=== PATIENT | female | born 1955 | race Caucasian/White ===

== ENCOUNTER 2018-06-01 13:14 | Observation (INO) ==
[2018-06-01] MEDS ORDERED: MoRPHine SULFATE 4 MG/ML 1 ML CARP\\VIAL IV STA (13:49)
[2018-06-01 14:19] LABS: iSTAT Creatinine 0.7 mg/dl (0.6-1.3); iSTAT Hemoglobin 12.9 g/dl (12.0-16.0); iSTAT Ionized Calcium 1.27 mmol/l (1.12-1.32); iSTAT Potassium 3.3 mEq/L (3.3-5.0)
--- NOTE | 2018-06-01 14:56 | XRay Report ---
XR hip LT 2-3V w pelvis CLINICAL HISTORY: trauma pain COMPARISON: None. DISCUSSION: The bones and joint spaces appear intact. There is no evidence of fracture, dislocation o r bony disease. There is no evidence for soft tissue swelling. IMPRESSION: Negative study. The above report was generated using voice recognition software. It may contain grammatical, syntax or spelling errors. Electronically signed by: John Magana M.D. 06/01/2018 2:54 PM
--- NOTE | 2018-06-01 14:56 | XRay Report ---
AP CHEST WITH LEFT-SIDED RIB SERIES CLINICAL HISTORY: Fall. FINDINGS: An AP upright chest radiograph with 4 additional views from a left-sided rib series is obta ined. No prior studies are available for comparison at the time of dictation. The cardiomediastinal silhouette is unremarkable. There is bibasilar scarring/atelectasis. No airspace consolidation or lar ge pleural effusion is identified. No pneumothorax is seen. The skeletal structures are osteopenic. T here is no radiographic evidence of acute/distracted left-sided rib fracture on the rib series. The r emainder of the bony thorax is grossly intact. Fusion hardware is seen in the lower cervical spine. S urgical clips are noted in the upper abdomen. IMPRESSION: 1. The lungs are clear. 2. There is no radiographic evidence of acute/distracted left-sided rib fracture on the rib series. Electronically signed by: Kali Juarez M.D. 06/01/2018 2:55 PM
--- NOTE | 2018-06-01 14:57 | XRay Report ---
XR shoulder LT min 2V routine, XR elbow LT min 3V routine, XR forearm LT 2V HISTORY: 62 years-old Female trauma acute left upper extremity pain status post trauma COMPARISON: None available TECHNIQUE: 3 views of the left shoulder, 3 views of the left elbow and 2 views of the left forearm FINDINGS: SHOULDER: Demineralized appearance of the bones. Moderate AC joint with mild glenohumeral osteoarthritis. No ac wes fracture or dislocation. Imaged left lung lacey appear clear. Fusion hardware noted about the lower cervical spine. ELBOW: Demineralized appearance of the bones. Mild degenerative changes about the elbow. No acute fracture, dislocation, opaque foreign body or large joint effusion. FOREARM: No acute fracture, dislocation or opaque foreign body. 2 mm negative ulnar variance. Degenerative erna nges noted about the carpus. Demineralized appearance of the bones. Mild mid forearm soft tissue swel ling. IMPRESSION: No acute fracture or dislocation. The above report was generated using voice recognition software. It may contain grammatical, syntax o r spelling errors. Electronically signed by: Gian Hua M.D. 06/01/2018 2:55 PM
[2018-06-01] MEDS ORDERED: FAMOTIDINE 20MG/5ML IV PUSH IV STA (15:06)
[2018-06-01] MEDS ORDERED: SODIUM CHLORIDE 0.9% 500 ML IV ONE (15:11)
[2018-06-01] MEDS ORDERED: ONDANSETRON INJ 2 MG/ML 2 ML VIAL IV STA (15:11)
[2018-06-01] MEDS ORDERED: IOVERSOL 100ml IV PRN (16:02)
--- NOTE | 2018-06-01 16:12 | CT Scan Report ---
CT hip LT wo con HISTORY: 62 years-old Female trauma, pain acute post traumatic left hip pain COMPARISON: CT abdomen and pelvis of same day TECHNIQUE: Multiple axial CT images of the left hip were obtained without the use of IV contrast. A d ose lowering technique was used consistent with the principals of GUILLERMO. FINDINGS: There are several subcentimeter sclerotic foci about the proximal femur suggestive of benign bone isl ands. There are subtle acute nondisplaced fractures about the left superior and inferior pubic rami. Partially imaged subtle acute nondisplaced fracture of the left sacral ala. Left femur and femoral ac etabular joint are intact. Mild left hip osteoarthritis. No acute processes of the imaged intrapelvic structures. Mild urinary bladder distention. Soft tissue s of the left hip are unremarkable. No large joint effusion. IMPRESSION: 1. Acute nondisplaced left superior and inferior pubic rami fractures with partially imaged fracture of the left sacral ala. 2. 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 The above report was generated using voice recognition software. It may contain grammatical, syntax o r spelling errors. Electronically signed by: Gian Hua M.D. 06/01/2018 4:11 PM
--- NOTE | 2018-06-01 16:17 | CT Scan Report ---
ABDOMEN AND PELVIS CT WITH IV CONTRAST CT DOSE: 797.78 mGy.cm HISTORY: Abdominal pain. Nausea. Vomiting. TECHNIQUE: Multiaxial CT images of the abdomen and pelvis were performed following the use of intrave nous contrast. A dose lowering technique was utilized adhering to the principles of ALARA. COMPARISON STUDY: None. FINDINGS: Groundglass densities within the lung bases posteriorly likely represent dependent changes. There are suggestion of a subtle left superior and inferior pubic rami fractures. Subtle cortical ir regularity along the anterior cortex of the left sacrum best in image 327. This is consistent with a nondisplaced sacral fracture. Mild intrahepatic bile duct dilatation is noted. 1 cm hypodense lesion within the caudate lobe adjacent to the IVC. This is too small to characterize. The spleen, adrenal g lands, and pancreas appear unremarkable. The common bile duct is diffusely distended measuring up to 1 cm in diameter. This may be due to the patient's postcholecystectomy state. No retroperitoneal lymp hadenopathy. A few subcentimeter hypodense lesions within the left kidney which are too small to hola acterize. Statistically these represent cysts. Normal right kidney. No hydronephrosis. The bladder is unremarkable. The uterus is surgically absent. The appendix is not identified and reportedly surgica lly absent. No pelvic free fluid. No bowel wall thickening or obstruction. Colonic diverticulosis. No evidence for diverticulitis. IMPRESSION: 1. Nondisplaced left sacral and left pubic ring fractures. 2. Intra and extra hepatic bile duct dilatation. This may be due to the patient's postcholecystectomy state. Recommend correlation with LFTs. 3. No bowel wall thickening or obstruction. 4. Colonic diverticulosis. 5. Prior hysterectomy and appendectomy. Electronically signed by: Jayce Kearney M.D. 06/01/2018 4:16 PM
[2018-06-01] MEDS ORDERED: GI COCKTAIL ED USE PO ONE (16:55)
--- NOTE | 2018-06-01 16:56 | Emergency Department Note ---
Entered by Edelmira Mae acting as a scribe for History of Present Illness General Chief complaint: Fall Stated complaint: fall/ L hip & shoulder pain Time Seen by Provider: 06/01/18 13:22 Source: patient History of Present Illness Onset (ago): minute(s) (prior to arrival) Location: left (hip, elbow, shoulder) Pain Consistency: + other (episode) Maximum Pain Intensity: 8 Quality: + other (fall) Exacerbated By: + movement Associated symptoms: + denies other symptoms (loss of consciousness, left knee pain, rib pain, new neck pain, dizziness, lightheadedness, right arm pain, right leg pain) and + other (left hip pain, left elbow pain, left shoulder pain); no chest pain and no shortness of breath The patient is a 62 year old female who presents to the Emergency Room with complaints of an episode of a fall occurring prior to arrival. The patient states that she was walking into [place] when she slipped on a big patch of ice and landed on her left side. She states that she was unable to get up afterwards. She complains of left hip pain, left shoulder pain, and left elbow pain. She notes that it is worse with movement. The patient denies hitting her head, loss of consciousness, left knee pain, rib pain, chest pain, new neck pain, trouble breathing, dizziness, lightheadedness, right arm pain, right leg pain, and use of blood thinners. The patient notes that she is right handed. Home Medications Home Medications Medication Instructions Recorded Confirmed Type esomeprazole magnesium 40 mg PO QAM 06/01/18 06/01/18 History gabapentin 400 mg PO QAM 06/01/18 06/01/18 History tramadol 50 mg PO Q12H PRN 06/01/18 06/01/18 History Allergies Allergy/AdvReac Type Severity Reaction Status Date / Time No Known Allergies Allergy Unverified 06/01/18 14:47 Past Med/Surg History Medical History History of hysterectomy GERD (gastroesophageal reflux disease) Chronic neck pain RLS (restless legs syndrome) Surgical History History of tubal ligation History of hemorrhoidectomy History of appendectomy History of cholecystectomy History of fusion of cervical spine History of neck surgery Social History Preferred Language: Nigerian Communication Ability: Effective marital status: Current Living Situation: Family current occupational status: employed current occupation: [employer] Feels Safe at Home: Yes Smoking Status: Never smoker Hx Alcohol Use: Yes Hx Substance Use: No Review of Systems See HPI for pertinent positives & negatives. and A total of 10 systems reviewed and were otherwise negative Physical Exam Vital Signs Vital Signs - 24 hr 06/01/18 13:31 06/01/18 14:04 06/01/18 15:43 Temperature 36.4 C L Temperature Source Oral Sepsis Recent Fever Within 48 Hours No Sepsis New/Unexplained Change in Mental Status No Sepsis Action Taken by Nursing No Action Required Pulse Rate 77 Pulse Rate [Left Finger] 79 79 Respiratory Rate 18 18 18 Respiratory Effort / Characteristics Non-Labored Spontaneous Respiratory Depth Normal Normal Respiratory Pattern Regular Blood Pressure 143/83 H Blood Pressure [Left Arm] 144/84 H 154/80 H Blood Pressure [Right Arm] Blood Pressure Mean 103 Blood Pressure Mean [Left Arm] 104 104 Blood Pressure Mean [Right Arm] Blood Pressure Position [Left Arm] Lying Blood Pressure Position [Right Arm] Pulse Oximetry 100 97 93 Oxygen Delivery Method Room Air Room Air Room Air 06/01/18 17:45 06/01/18 18:37 06/01/18 19:33 Temperature 36.8 C Temperature Source Oral Sepsis Recent Fever Within 48 Hours Sepsis New/Unexplained Change in Mental Status Sepsis Action Taken by Nursing Pulse Rate 88 Pulse Rate [Left Finger] 85 91 H Respiratory Rate 18 18 16 Respiratory Effort / Characteristics Non-Labored Spontaneous Non-Labored Spontaneous Respiratory Depth Normal Normal Respiratory Pattern Regular Blood Pressure 130/79 Blood Pressure [Left Arm] 141/80 H Blood Pressure [Right Arm] 126/73 Blood Pressure Mean Blood Pressure Mean [Left Arm] 100 Blood Pressure Mean [Right Arm] 90 Blood Pressure Position [Left Arm] Blood Pressure Position [Right Arm] Lying Pulse Oximetry 93 93 96 Oxygen Delivery Method Room Air Room Air Room Air GENERAL: alert, well appearing, well nourished, no distress, non-toxic HEAD: normal cephalic, atraumatic EYE EXAM: normal conjunctiva, PERRL and EOM's grossly intact OROPHARYNX: no exudate, no erythema, lips, buccal mucosa, and tongue normal and mucous membranes are moist EARS: TMs clear b/l NECK: supple, no nuchal rigidity, no adenopathy, non-tender CHEST: stable to compression anteriorly and posteriorly LUNGS: clear to auscultation. Normal chest wall mechanics HEART: no murmurs, S1 normal and S2 normal ABDOMEN: abdomen soft, non-tender, normo-active bowel sounds, no masses, no rebound or guarding. PELVIS: stable to compression anteriorly and posteriorly BACK: Back is symmetrical on inspection and there is no deformity, no midline tenderness, no CVA tenderness. UPPER EXTREMITIES: Pain with palpation over the left humeral head and distal clavicle. No ecchymosis. No obvious deformity. Decreased ROM secondary to pain. Pain with palpation of the left lateral epicondyle. No overlying ecchymosis. No obvious deformity. Decreased ROM secondary to pain. Pain with palpation over the left forearm and wrist. No overlying ecchymosis. No obvious deformity. Decreased ROM secondary to pain. Normal distal pulses bilaterally. Normal capillary refill. Normal sensory exam. RUE unremarkable. LOWER EXTREMITIES: Pain with palpation over the left lateral hip. Decreased ROM due to pain. No obvious deformity or ecchymosis. Normal distal pulses bilaterally. Patient prefers to keep the left lower extremity in a flexed position. NEURO EXAM: Normal sensorium, cranial nerves II-XII grossly intact, normal speech, no gross weakness of arms, no gross weakness of legs. GCS: 15. Course 1329: Past medical records reviewed. The patient was evaluated in room C2B, and a complete history and physical examination were performed. 1509: I reevaluated the patient and she is now having epigastric pain and nausea. She is still unable to move left hip. She will be sent for a CT. 1630: I reevaluated the patient and updated her on her test results. She is tearful, but doing okay. I discussed the treatment plan with her. She verbally agrees and understands. 1653: I reviewed the patient's case with BOY Kaur spitalist. She will evaluate the patient for further management. Consultations Consultation #1: I reviewed the patient's case with BOY Kaur Hospitalist. She will evaluate the patient for further management. Time: 16:53 Administered Medications Discontinued Medications Al Hydrox/Mg Hydrox/Simethicone () 1 dose PO ONE ONE Stop: 06/01/18 16:56 Last Admin: 06/01/18 19:01 Dose: Not Given Documented by: [id number] Famotidine (Pepcid 20mg Iv Push) 20 mg IV ONE STA Stop: 06/01/18 15:07 Last Admin: 06/01/18 15:42 Dose: 20 mg Documented by: [id number] Sodium Chloride (Nss) 500 mls @ 999 mls/hr IV .Q31M ONE Stop: 06/01/18 15:41 Last Infusion: 06/01/18 16:12 Dose: 0 mls/hr Documented by: [id number] Admin: 06/01/18 15:42 Dose: 999 mls/hr Documented by: [id number] Ioversol (Optiray 320 100ml) 94 ml IV ONCE PRN PRN Reason: Interaction Checking Stop: 06/05/18 16:01 Last Admin: 06/01/18 16:03 Dose: 94 ml Documented by: [id number] Morphine Sulfate (Morphine Sulfate) 4 mg IV NOW STA Stop: 06/01/18 13:50 Last Admin: 06/01/18 14:05 Dose: 4 mg Documented by: [id number] Ondansetron HCl (Zofran) 4 mg IV NOW STA Stop: 06/01/18 15:12 Last Admin: 06/01/18 15:42 Dose: 4 mg Documented by: [id number] Medical Decision Making Differential Diagnosis Differential diagnosis: Etiologies such as fracture, cervical/vertebral injury, dislocation, intra- abdominal process, pneumothorax, intrathoracic trauma, intracranial injury, soft tissue injury, neurologic process, as well as other traumatic pathologies were entertained. Medical Records Attestation: I reviewed the patient's medical records. Home Medications Current Medication List: was personally reviewed by me Laboratory Data Attestation: I reviewed the patient's lab results. Lab Results 06/01/18 06/01/18 Range/Units 14:07 14:11 POC Hgb 12.9 (12.0-16.0) g/dl POC Hct 38 (37-47) % POC Sodium 143 (135-144) mEq/L POC Potassium 3.3 (3.3-5.0) mEq/L POC Chloride 106 (101-112) mEq/L POC Total CO2 24 (24-31) mEq/l POC Anion Gap 17.0 (16-25) mmol/L POC BUN 10 (7-18) mg/dl POC Creatinine 0.7 (0.6-1.3) mg/dl POC Glucose (other) 97 (70-99) mg/dl POC Ioniz Calcium Weston 1.27 (1.12-1.32) mmol/l POC Troponin I < 0.03 (0-0.045) ng/ml Imaging Data Radiologist's Impression: Radiology results as stated below per my review and the radiologist's interpretation: XR shoulder LT min 2V routine, XR elbow LT min 3V routine, XR forearm LT 2V HISTORY: 62 years-old Female trauma acute left upper extremity pain status post trauma COMPARISON: None available TECHNIQUE: 3 views of the left shoulder, 3 views of the left elbow and 2 views of the left forearm FINDINGS: SHOULDER: Demineralized appearance of the bones. Moderate AC joint with mild glenohumeral osteoarthritis. No acute fracture or dislocation. Imaged left lung lacey appear clear. Fusion hardware noted about the lower cervical spine. ELBOW: Demineralized appearance of the bones. Mild degenerative changes about the elbow. No acute fracture, dislocation, opaque foreign body or large joint effusion. FOREARM: No acute fracture, dislocation or opaque foreign body. 2 mm negative ulnar variance. Degenerative changes noted about the carpus. Demineralized appearance of the bones. Mild mid forearm soft tissue swelling. IMPRESSION: No acute fracture or dislocation. The above report was generated using voice recognition software. It may contain grammatical, syntax or spelling errors. Electronically signed by: Gian Hua M.D. 06/01/2018 2:55 PM AP CHEST WITH LEFT-SIDED RIB SERIES CLINICAL HISTORY: Fall. FINDINGS: An AP upright chest radiograph with 4 additional views from a left- sided rib series is obtained. No prior studies are available for comparison at the time of dictation. The cardiomediastinal silhouette is unremarkable. There is bibasilar scarring/atelectasis. No airspace consolidation or large pleural effusion is identified. No pneumothorax is seen. The skeletal structures are osteopenic. There is no radiographic evidence of acute/distracted left-sided rib fracture on the rib series. The remainder of the bony thorax is grossly intact. Fusion hardware is seen in the lower cervical spine. Surgical clips are noted in the upper abdomen. IMPRESSION: 1. The lungs are clear. 2. There is no radiographic evidence of acute/distracted left-sided rib fracture on the rib series. Electronically signed by: Kali Juarez M.D. 06/01/2018 2:55 PM XR hip LT 2-3V w pelvis CLINICAL HISTORY: trauma pain COMPARISON: None. DISCUSSION: The bones and joint spaces appear intact. There is no evidence of fracture, dislocation or bony disease. There is no evidence for soft tissue swelling. IMPRESSION: Negative study. The above report was generated using voice recognition software. It may contain grammatical, syntax or spelling errors. Electronically signed by: John Magana M.D. 06/01/2018 2:54 PM ABDOMEN AND PELVIS CT WITH IV CONTRAST CT DOSE: 797.78 mGy.cm HISTORY: Abdominal pain. Nausea. Vomiting. TECHNIQUE: Multiaxial CT images of the abdomen and pelvis were performed following the use of intravenous contrast. A dose lowering technique was utilized adhering to the principles of ALARA. COMPARISON STUDY: None. FINDINGS: Groundglass densities within the lung bases posteriorly likely represent dependent changes. There are suggestion of a subtle left superior and inferior pubic rami fractures. Subtle cortical irregularity along the anterior c ortex of the left sacrum best in image 327. This is consistent with a nondisplaced sacral fracture. Mild intrahepatic bile duct dilatation is noted. 1 cm hypodense lesion within the caudate lobe adjacent to the IVC. This is too small to characterize. The spleen, adrenal glands, and pancreas appear unremarkable. The common bile duct is diffusely distended measuring up to 1 cm in diameter. This may be due to the patient's postcholecystectomy state. No retroperitoneal lymphadenopathy. A few subcentimeter hypodense lesions within the left kidney which are too small to characterize. Statistically these represent cysts. Normal right kidney. No hydronephrosis. The bladder is unremarkable. The uterus is surgically absent. The appendix is not identified and reportedly surgically absent. No pelvic free fluid. No bowel wall thickening or obstruction. Colonic diverticulosis. No evidence for diverticulitis. IMPRESSION: 1. Nondisplaced left sacral and left pubic ring fractures. 2. Intra and extra hepatic bile duct dilatation. This may be due to the patient's postcholecystectomy state. Recommend correlation with LFTs. 3. No bowel wall thickening or obstruction. 4. Colonic diverticulosis. 5. Prior hysterectomy and appendectomy. Electronically signed by: Jayce Kearney M.D. 06/01/2018 4:[address] hip LT wo con HISTORY: 62 years-old Female trauma, pain acute post traumatic left hip pain COMPARISON: CT abdomen and pelvis of same day TECHNIQUE: Multiple axial CT images of the left hip were obtained without the use of IV contrast. A dose lowering technique was used consistent with the principals of GUILLERMO. FINDINGS: There are several subcentimeter sclerotic foci about the proximal femur suggestive of benign bone islands. There are subtle acute nondisplaced fractures about the left superior and inferior pubic rami. Partially imaged subtle acute nondisplaced fracture of the left sacral ala. Left femur and femoral acetabular joint are intact. Mild left hip osteoarthritis. No acute processes of the imaged intrapelvic structures. Mild urinary bladder distention. Soft tissues of the left hip are unremarkable. No large joint effusion. IMPRESSION: 1. Acute nondisplaced left superior and inferior pubic rami fractures with partially imaged fracture of the left sacral ala. 2. 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 The above report was generated using voice recognition software. It may contain grammatical, syntax or spelling errors. Electronically signed by: Gian Hua M.D. 06/01/2018 4:11 PM ECG Data Attestation: I personally reviewed and interpreted this ECG as follows: Indication: other (trauma) Rate (beats per minute): 77 Rhythm: sinus rhythm Findings: + other (normal axis, normal intervals, artifact noted); no ST elevation Blood Pressure Blood Pressure Findings: Elevated blood pressure Blood Pressure Disposition: further management by hospitalist ROGER Tobin Patient presented here after slip and fall from standing due to icy weather conditions. Patient not on any antiplatelet or anticoagulation therapy. Patient hemodynamically stable throughout, Chem-8 and [id number] troponin reassuring. While x-rays originally negative, patient with persistent pain and sent for CT imaging as a precaution. Patient also had developed some epigastric discomfort and nausea in the interim, so given the trauma she was sent for a CT abdomen and pelvis as well as a CT of the left hip given that seem to be the area of the most pain. Patient found to have pubic rami fractures as well as sacral ala fracture. Given the hour of the day patient was unable to have a PT/OT consult, or orthopedic consultation in order to help facilitate placement into inpatient rehab. Case discussed with hospitalist for observation here, orthopedic consultation, PT/OT, and pain control. Patient and family were aware of all results, and in agreement with plan. Plan at this time is to facilitate placement in inpatient rehab facility tomorrow. I do not suspect any additional occult traumatic injury including pulmonary contusion, cardiac contusion, spinal cord injury, neck or back injury, vascular injury. Impression & Plan Fracture of pubic ramus, Closed sacral fracture, Fall Discharge Plan Visit Data *Final* Discharge Date/Time: 06/01/18 18:37 Chief Complaint: Fall Stated Complaint: fall/ L hip & shoulder pain ED Provider: Noreen Peñaloza Discharge Problem: Fracture of pubic ramus, Closed sacral fracture, Fall Patient Disposition: Admitted As Inpatient Discharge Instructions Interventions: ED Discharge Assessment Last Done: 06/01/18 18:37 Discharge Problem: Fracture of pubic ramus Qualifiers: Encounter type: initial encounter Fracture type: closed Laterality: unspecified laterality Qualified Code(s): S32.599A - Other specified fracture of unspecified pubis, initial encounter for closed fracture Closed sacral fracture Qualifiers: Encounter type: initial encounter Zone of sacrum fracture: unspecified portion of sacrum Qualified Code(s): S32.10XA - Unspecified fracture of sacrum, initial encounter for closed fracture Fall Qualifiers: Encounter type: initial encounter Qualified Code(s): W19.XXXA - Unspecified fall, initial encounter The scribe's documentation has been prepared under my direction and personally reviewed by me in its entirety. I confirm that the note above accurately reflects all work, treatment, procedures, and medical decision making performed by me.
--- NOTE | 2018-06-01 17:49 | History & Physical Report ---
Date of Service June 01, 2018 Assessment & Plan (1) Ambulatory dysfunction: (2) Fall: (3) Closed sacral fracture: (4) Fracture of pubic ramus: This is a 62 year old female with a PMH of Gerd, Chronic neck pain with history of Cspine fusion, RLS that presents to [facility] secondary to mechanical fall on ice earlier today. CT scan noted Acute nondisplaced left superior and inferior pubic rami fractures and fracture of the left sacral ala. Patient is being admitted under observation for pain management, PT/OT and ortho evaluation. -admit to med/surg -fracture likely nonoperative, will need pain control -consult ortho for evaluation -Consult PT/OT -consult case management, possible d/c to acute rehab tomorrow -Toradol 30mg IV q6hr prn pain or toradol 50mg q4hr prn mod pain -Morphine 2mg q4hr prn severe pain -obtain vit d3, mag and bmp in a.m. (5) GERD (gastroesophageal reflux disease): -continue PPI (6) Chronic neck pain: -continue gabapentin, tramadol (7) RLS (restless legs syndrome): -continue gabapentin (8) DVT prophylaxis: -Lovenox 40mg SQ Disposition: Likely d/c to acute rehab will consult case management Follow up: PCP at [facility] upon discharge Patient was seen in collaboration with Dr. Cohen, please see addendum Starting 06/02/18 patient will be followed by Dr. De Los Santos History of Present Illness Chief Complaint: Mechanical fall on Ice with LUE and LLE pain. Primary Care Provider: [facility] This is a 62 year old female with a PMH of Gerd, Chronic neck pain with history of Cspine fusion, RLS that presents to [facility] secondary to mechanical fall on ice earlier today. Patient was walking into [employer] grocery store when she fell on ice. Doesn't exactly recall how she fell, "it all happened to fast." She denies LOC, hitting head, syncope. After fall had immediate L hip pain, L shoulder pain and L elbow/wrist pain. Presented to ED. Trauma work up significant for nondisplaced left superior inferior pubic rami fracture along with left sacral fracture. Initial x-ray imaging was negative; however, subsequent CT imaging revealed occult fracture. Patient experienced significant pain with movement. Received IV morphine which caused nausea but alleviated pain to 3/10. She denies any other problems at this time including f/c/s, recent illness, chest pain, sob, emesis, diarrhea, change in bowel or bladder habits. Denies hx of osteoporosis. Has never had dexa scan. Mother + hx of osteoporosis. Mother and father both living but lung cancer survivor. Allergies Allergy/AdvReac Type Severity Reaction Status Date / Time No Known Allergies Allergy Unverified 06/01/18 14:47 Home Medications Home Medications Medication Instructions Recorded Confirmed Type esomeprazole magnesium 40 mg PO QAM 06/01/18 06/01/18 History gabapentin 400 mg PO QAM 06/01/18 06/01/18 History tramadol 50 mg PO Q12H PRN 06/01/18 06/01/18 History Past Med/Surg History Medical History History of hysterectomy GERD (gastroesophageal reflux disease) Chronic neck pain RLS (restless legs syndrome) Surgical History History of tubal ligation History of hemorrhoidectomy History of appendectomy History of cholecystectomy History of fusion of cervical spine History of neck surgery Social History Preferred Language: Finnish Communication Ability: Effective Beliefs That Will Affect Care: None marital status: Current Living Situation: Spouse current occupational status: employed 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 Other Information That Helps Us Care for You: No Feels Safe at Home: Yes Safety Concerns: Feels Safe At This Time Smoking Status: Former smoker Hx Alcohol Use: No Hx Substance Use: No Review of Systems All systems reviewed & are unremarkable except as noted in HPI & below Physical Exam Vital Signs (Past 24 Hours): Last Vital Signs Temp 36.4 C L 06/01/18 13:31 Pulse 79 06/01/18 15:43 Resp 18 06/01/18 15:43 BP 154/80 H 06/01/18 15:43 Pulse Ox 93 06/01/18 15:43 Physical Exam: Gen: WD/WN, F, NAD, sitting up in bed, pleasant, conversing easily, flat affect Head: Normocephalic, Atraumatic Eyes: Sclera normal, no conjunctival injection, PERRLA, EOMI ENT: Gross hearing intact, normal pharynx, mucous membranes moist Neck: supple, no adenopathy, No JVD, no bruit, Resp: Clear to auscultation b/l, no wheeze, rales, rhonchi. Normal insp/exp effort, no accessory muscle use CV: Regular rate, regular rhythm, no murmur, rub, gallop, or ectopy Abd: +BS x 4, soft, nontender, nondistended Musculoskeletal: moves extremities active rom x 4, LLE with significant pain, strength not assessed in LLE, otherwise strength intact, good victim witness administrator strength Extremities: No edema bilaterally Skin: warm, moist, no rash, negative turgor, cap refill < 2sec Neuro: Alert and oriented x 3, speech normal, good mood/affect, cran nerve 2-12 intact grossly : deferred Results & Data Diagnostic Findings Hip CT: IMPRESSION: 1. Acute nondisplaced left superior and inferior pubic rami fractures with partially imaged fracture of the left sacral ala. 2. 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 Abd/Pelvis CT: IMPRESSION: 1. Nondisplaced left sacral and left pubic ring fractures. 2. Intra and extra hepatic bile duct dilatation. This may be due to the patient's postcholecystectomy state. Recommend correlation with LFTs. 3. No bowel wall thickening or obstruction. 4. Colonic diverticulosis. 5. Prior hysterectomy and appendectomy. Shoulder/Forearm/elbow xray: SHOULDER: Demineralized appearance of the bones. Moderate AC joint with mild glenohumeral osteoarthritis. No acute fracture or dislocation. Imaged left lung lacey appear clear. Fusion hardware noted about the lower cervical spine. ELBOW: Demineralized appearance of the bones. Mild degenerative changes about the elbow. No acute fracture, dislocation, opaque foreign body or large joint effusion. FOREARM: No acute fracture, dislocation or opaque foreign body. 2 mm negative ulnar variance. Degenerative changes noted about the carpus. Demineralized appearance of the bones. Mild mid forearm soft tissue swelling. IMPRESSION: No acute fracture or dislocation. Ribs w/ chest xray: IMPRESSION: 1. The lungs are clear. 2. There is no radiographic evidence of acute/distracted left-sided rib fracture on the rib series. Medications Administered Ioversol (Optiray 320 100ml) 94 ml IV ONCE PRN PRN Reason: Interaction Checking Stop: 06/05/18 16:01 Last Admin: 06/01/18 16:03 Dose: 94 ml Documented by: [id number] Discontinued Medications Famotidine (Pepcid 20mg Iv Push) 20 mg IV ONE STA Stop: 06/01/18 15:07 Last Admin: 06/01/18 15:42 Dose: 20 mg Documented by: [id number] Sodium Chloride (Nss) 500 mls @ 999 mls/hr IV .Q31M ONE Stop: 06/01/18 15:41 Last Infusion: 06/01/18 16:12 Dose: 0 mls/hr Documented by: [id number] Admin: 06/01/18 15:42 Dose: 999 mls/hr Documented by: [id number] Morphine Sulfate (Morphine Sulfate) 4 mg IV NOW STA Stop: 06/01/18 13:50 Last Admin: 06/01/18 14:05 Dose: 4 mg Documented by: [id number] Ondansetron HCl (Zofran) 4 mg IV NOW STA Stop: 06/01/18 15:12 Last Admin: 06/01/18 15:42 Dose: 4 mg Documented by: [id number] Code Status & VTE Plan Code Status Full Code VTE Prophylaxis Plan VTE Prophylaxis will be ordered: Yes Supervising Physician Co-Signing Physician Notes Patient is a 62-year-old female with history of cervicalgia, GERD and other problems presents with history of mechanical fall after she fell on ice. She denies history of head trauma, loss of consciousness. She complained to have left hip pain and left shoulder and elbow/wrist pain. Imaging studies are sugge stive of nondisplaced left pubic rami fracture and left sacral fracture. On exam patient is moderately built and nourished, no apparent distress, lungs are clear to auscultation, S1-S2, no murmur, abdomen is soft nontender, decreased ROM of lower extremity secondary to pain, no pedal edema. Patient is admitted under observation status. Orthopedics consulted for possible brace. Pain control, PT OT, fall precautions. May need rehab placement. I personally reviewed the record. Patient is interviewed and examined at bedside. Patient's care is coordinated with Meseret Tompkins PA-C. Please refer to the documentation above for details of patient's presentation and for discussion of other issues. (1) Fracture of pubic ramus Encounter type: initial encounter Fracture type: closed Laterality: unspecified laterality Qualified Code(s): S32.599A - Other specified fracture of unspecified pubis, initial encounter for closed fracture (2) Closed sacral fracture Encounter type: initial encounter Zone of sacrum fracture: unspecified portion of sacrum Qualified Code(s): S32.10XA - Unspecified fracture of sacrum, initial encounter for closed fracture (3) GERD (gastroesophageal reflux disease) Esophagitis presence: esophagitis presence not specified Qualified Code(s): K21.9 - Gastro-esophageal reflux disease without esophagitis (4) Fall Encounter type: initial encounter Qualified Code(s): W19.XXXA - Unspecified fall, initial encounter
[2018-06-01] MEDS ORDERED: POLYETHYLENE (MIRALAX) 17 GM PACK PO PRN (19:31)
[2018-06-01] MEDS ORDERED: MoRPHine SULFATE 2 MG/ML CARP IV PRN (19:31)
[2018-06-01] MEDS ORDERED: ACETAMINOPHEN 1,000 MG/100 ML VIAL IV PRN (19:31)
[2018-06-01] MEDS ORDERED: KETOROLAC TROMETHAMINE 15 MG/ML VIAL IV PRN (19:31)
[2018-06-01] MEDS ORDERED: MAGNESIUM HYDROXIDE SUSP 30 ML UDC PO PRN (19:31)
[2018-06-01 20:25] LABS: INR 1.1 (0.9-1.1); Prothrombin Time 10.9 Seconds (9.0-12.0)
[2018-06-01] MEDS: TRAMADOL HCL 50 MG TABLET PO PRN (22:20)
[2018-06-01] MEDS: ENOXAPARIN INJ 40 MG/0.4 ML SYR SQ SCH (22:23)
[2018-06-01] MEDS: GABAPENTIN 400 MG CAP PO SCH (22:23)
[2018-06-02] MEDS: TRAMADOL HCL 50 MG TABLET PO PRN ×4 (02:22→21:19)
[2018-06-02] MEDS: ALUMINUM/MAGNESIUM SUSP 30 ML UDC PO PRN ×2 (03:45→16:33)
[2018-06-02] MEDS: ACETAMINOPHEN 325 MG TAB PO PRN (07:26)
[2018-06-02 07:27] LABS: Hematocrit (blood only) 34.9 % (37-47); Hemoglobin 11.6 g/dL (12.0-16.0); Mean Corpuscular Hgb Conc 33.2 g/dL (32-36); Mean Corpuscular Volume 88.4 fL (80-100); Mean Platelet Volume 9.8 fL (7.4-10.4); Platelet Count 148 K/uL (130-400); RDW Coefficient of Variation 13.6 % (11.5-14.5); RDW Standard Deviation 44.1 fL (36.4-46.3); Red Blood Count 3.95 M/uL (4.2-5.4); White Blood Count 4.69 K/uL (4.8-10.8)
[2018-06-02 08:01] LABS: Creatinine Clr Calc Pharmacy 84.3 ml/min; Est GFR (African American) 105.1; Est GFR (Non-African American) 90.7
[2018-06-02] MEDS ORDERED: GABAPENTIN 400 MG CAP PO SCH (09:00)
[2018-06-02] MEDS: PANTOprazole 40 MG TAB PO SCH (09:11)
[2018-06-02] MEDS: ONDANSETRON INJ 2 MG/ML 2 ML VIAL IV PRN (09:18)
--- NOTE | 2018-06-02 14:54 | Orthopedic Consultation ---
Date of Consultation June 02, 2018 Assessment & Plan (1) Fracture of pubic ramus: X-rays have been reviewed with Dr. Beltran. The sacral fracture noted on CT scan appears fairly small. Pubic ramus fracture noted as well. Plan for weightbearing as tolerated on the left lower extremity. Continue current pain control as per medicine service. Plan to follow-up with Dr. Beltran in 2 weeks. (2) Closed sacral fracture: as noted above History of Present Illness Reason for Consultation: Pelvic fracture Attending Physician: Deng De Los Santos MD History of Present Illness Patient is a 62-year-old white female who states that she was coming out of the grocery store and slipped on the ice. The hard on her left side. She had pain in her left groin while trying to ambulate and was having difficulty. She came to the emergency room and was seen by the staff. X-rays were taken and was found that she had a pubic ramus fracture. CT scan was obtained and also found question of a sacral ala fracture. Patient was admitted for further pain control and orthopedic consult. We have been asked to see her for this reason. Allergies Allergy/AdvReac Type Severity Reaction Status Date / Time No Known Allergies Allergy Unverified 06/01/18 14:47 Home Medications Home Medications Medication Instructions Recorded Confirmed Type esomeprazole magnesium 40 mg PO QAM 06/01/18 06/01/18 History gabapentin 400 mg PO QAM 06/01/18 06/01/18 History tramadol 50 mg PO Q12H PRN 06/01/18 06/01/18 History Patient History Medical History History of hysterectomy GERD (gastroesophageal reflux disease) Chronic neck pain RLS (restless legs syndrome) Surgical History History of tubal ligation History of hemorrhoidectomy History of appendectomy History of cholecystectomy History of fusion of cervical spine History of neck surgery Family History Mother Lung cancer Father Lung cancer Social History Communication Ability: Effective Beliefs That Will Affect Care: None marital status: Current Living Situation: Spouse current occupational status: employed 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 Physical Exam Vital Signs (Past 24 Hours): Last Vital Signs Temp 36.9 C 06/02/18 07:00 Pulse 82 06/02/18 07:00 Resp 16 06/02/18 07:00 BP 137/85 06/02/18 07:00 Pulse Ox 94 06/02/18 07:00 Physical Exam: Focusing exam on the left lower extremity, she has moderate pain in the left groin with gentle range of motion of the left leg. She has some generalized aches of the left lower extremity near the knee but the knee is essentially nontender with range of motion. She has good range of motion of her left ankle and toes. Leg lengths appear essentially equal. Right lower extremity is within normal limits and has no pain and good range of motion at the hip knee and ankle. Upper extremities, notes left shoulder pain without any overt swelling or bruising. She has good range of motion of the left shoulder at this time. Mild left elbow pain but good range of motion. Denies left wrist pain. Right upper extremity is within normal limits and has good range of motion. She had some initial neck tenderness which is resolving and she has good range of motion of the neck at this time. Denies thoracic or low back pain. No gross motor or sensory loss seen at this time. Results & Data Diagnostic Findings ABDOMEN AND PELVIS CT WITH IV CONTRAST CT DOSE: 797.78 mGy.cm HISTORY: Abdominal pain. Nausea. Vomiting. TECHNIQUE: Multiaxial CT images of the abdomen and pelvis were performed foll owing the use of intravenous contrast. A dose lowering technique was utilized adhering to the principles of ALARA. COMPARISON STUDY: None. FINDINGS: Groundglass densities within the lung bases posteriorly likely represent dependent changes. There are suggestion of a subtle left superior and inferior pubic rami fractures. Subtle cortical irregularity along the anterior cortex of the left sacrum best in image 327. This is consistent with a nondisplaced sacral fracture. Mild intrahepatic bile duct dilatation is noted. 1 cm hypodense lesion within the caudate lobe adjacent to the IVC. This is too small to characterize. The spleen, adrenal glands, and pancreas appear unremarkable. The common bile duct is diffusely distended measuring up to 1 cm in diameter. This may be due to the patient's postcholecystectomy state. No retroperitoneal lymphadenopathy. A few subcentimeter hypodense lesions within the left kidney which are too small to characterize. Statistically these represent cysts. Normal right kidney. No hydronephrosis. The bladder is unremarkable. The uterus is surgically absent. The appendix is not identified and reportedly surgically absent. No pelvic free fluid. No bowel wall thickening or obstruction. Colonic diverticulosis. No evidence for diverticulitis. IMPRESSION: 1. Nondisplaced left sacral and left pubic ring fractures. 2. Intra and extra hepatic bile duct dilatation. This may be due to the patient's postcholecystectomy state. Recommend correlation with LFTs. 3. No bowel wall thickening or obstruction. 4. Colonic diverticulosis. 5. Prior hysterectomy and appendectomy. (1) Fracture of pubic ramus Encounter type: initial encounter Fracture type: closed Laterality: unspecified laterality Qualified Code(s): S32.599A - Other specified fracture of unspecified pubis, initial encounter for closed fracture (2) Closed sacral fracture Encounter type: initial encounter Zone of sacrum fracture: unspecified portion of sacrum Qualified Code(s): S32.10XA - Unspecified fracture of sacrum, initial encounter for closed fracture
--- NOTE | 2018-06-02 15:47 | Hospitalist Progress Note ---
Date of Service June 02, 2018 Assessment & Plan (1) Ambulatory dysfunction: (2) Fall: (3) Closed sacral fracture: (4) Fracture of pubic ramus: This is a 62 year old female with a PMH of Gerd, Chronic neck pain with history of Cspine fusion, RLS that presents to [facility] secondary to mechanical fall on ice earlier today. CT scan noted Acute nondisplaced left superior and inferior pubic rami fractures and fracture of the left sacral ala. Has been on pain medications the pain is reasonably controlled Patient worked to input and recommendations Conservative management PT and OT evaluation Likely need for short-term rehab (5) GERD (gastroesophageal reflux disease): -continue PPI -No apparent symptoms (6) Chronic neck pain: -continue gabapentin, tramadol -Pain is worse with fracture (7) RLS (restless legs syndrome): -continue gabapentin -No active symptoms now of the pelvic rami and sacrum (8) DVT prophylaxis: -Lovenox 40mg SQ Disposition: Likely d/c to acute rehab will consult case management Follow up: PCP at [facility] upon discharge Subjective This is a 62 year old female with a PMH of Gerd, Chronic neck pain with history of Cspine fusion, RLS that presents to [facility] secondary to mechanical fall on ice earlier today. CT scan noted Acute nondisplaced left superior and inferior pubic rami fractures and fracture of the left sacral ala. 06/02 The patient was seen and examined in the medical floor He complains to have some pelvic pain but no other symptoms Physical Exam Vital Signs (Past 24 Hours): Last Vital Signs Temp 36.9 C 06/02/18 14:49 Pulse 73 06/02/18 14:49 Resp 18 06/02/18 14:49 BP 122/73 06/02/18 14:49 Pulse Ox 96 06/02/18 14:49 Physical Exam: No distress at rest Constitutional: WD/WN, vitals as above Eyes: PERRL, conjunctivae normal, anicteric sclerae ENMT: external ear and nose normal, oropharynx normal Neck: trachea midline, no thyromegaly Respiratory: normal respiratory effort Auscultation: lungs clear to auscultation bilaterally Cardiovascular: Rate/Rhythm: regular rate and regular rhythm Heart Sounds: normal S1 and normal S2 Gastrointestinal (Abdomen): normal bowel sounds, soft, nontender, no hepatosplenomegaly Musculoskeletal: Moderate pain with hip joints on either side Neurologic: Alert, awake and oriented x3 Results & Data Laboratory Results Short CBC 06/02/18 Range/Units 06:44 WBC 4.69 L (4.8-10.8) K/uL Hgb 11.6 L (12.0-16.0) g/dL Hct 34.9 L (37-47) % Plt Count 148 (130-400) K/uL BMP 06/02/18 06:44 Creatinine 0.71 Medications Administered Current Inpatient Medications Acetaminophen (Tylenol) 650 mg PO Q4H PRN PRN Reason: pain/fever Stop: 07/01/18 19:30 Last Admin: 06/02/18 07:26 Dose: 650 mg Documented by: Al Hydrox/Mg Hydrox/Simethicone (Maalox) 30 ml PO Q6H PRN PRN Reason: Dyspepsia Stop: 07/01/18 19:30 Last Admin: 06/02/18 03:45 Dose: 30 ml Documented by: Enoxaparin Sodium (Lovenox) 40 mg SQ Q24H CONNOR Stop: 07/01/18 20:59 Last Admin: 06/01/18 22:23 Dose: 40 mg Documented by: Gabapentin (Neurontin) 400 mg PO HS CONNOR Stop: 07/01/18 22:59 Last Admin: 06/01/18 22:23 Dose: 400 mg Documented by: Acetaminophen (Ofirmev) 1,000 mg in 100 mls @ 400 mls/hr IV Q8H PRN PRN Reason: Pain Stop: 07/01/18 19:30 Last Infusion: 06/01/18 22:20 Dose: Infused Documented by: Ketorolac Tromethamine (Toradol) 15 mg IV Q6H PRN PRN Reason: Pain Stop: 06/06/18 19:30 Magnesium Hydroxide (Milk Of Magnesia) 30 ml PO Q6H PRN PRN Reason: Constipation Stop: 07/01/18 19:30 Morphine Sulfate (Morphine Sulfate) 2 mg IV Q4H PRN PRN Reason: Severe Pain Stop: 06/15/18 19:30 Ondansetron HCl (Zofran) 4 mg IV Q6H PRN PRN Reason: Nausea Stop: 07/01/18 19:30 Last Admin: 06/02/18 09:18 Dose: 4 mg Documented by: Pantoprazole Sodium (Protonix) 40 mg PO DAILY CONNOR Stop: 07/02/18 08:59 Last Admin: 06/02/18 09:11 Dose: 40 mg Documented by: Polyethylene Glycol (Miralax Powder Packet) 17 gm PO DAILY PRN PRN Reason: Constipation Stop: 07/01/18 19:30 Tramadol HCl (Ultram) 50 mg PO Q4H PRN PRN Reason: Pain Stop: 07/01/18 19:30 Last Admin: 06/02/18 07:00 Dose: 50 mg Documented by: (1) Fall Encounter type: initial encounter Qualified Code(s): W19.XXXA - Unspecified fall, initial encounter (2) Closed sacral fracture Encounter type: initial encounter Zone of sacrum fracture: unspecified portion of sacrum Qualified Code(s): S32.10XA - Unspecified fracture of sacrum, initial encounter for closed fracture (3) Fracture of pubic ramus Encounter type: initial encounter Fracture type: closed Laterality: unspecified laterality Qualified Code(s): S32.599A - Other specified fracture of unspecified pubis, initial encounter for closed fracture (4) GERD (gastroesophageal reflux disease) Esophagitis presence: esophagitis presence not specified Qualified Code(s): K21.9 - Gastro-esophageal reflux disease without esophagitis
[2018-06-02] MEDS: GABAPENTIN 400 MG CAP PO SCH (21:22)
[2018-06-02] MEDS: ENOXAPARIN INJ 40 MG/0.4 ML SYR SQ SCH (22:45)
[2018-06-03] MEDS: TRAMADOL HCL 50 MG TABLET PO PRN ×4 (01:07→21:25)
--- NOTE | 2018-06-03 07:04 | Orthopedic Progress Note ---
Date of Service June 03, 2018 Assessment & Plan (1) Fracture of pubic ramus: X-rays have been reviewed with Dr. Beltran. The sacral fracture noted on CT scan appears fairly small. Pubic ramus fracture noted as well. Plan for weightbearing as tolerated on the left lower extremity. Continue current pain control as per medicine service. Plan to follow-up with Dr. Beltran in 2 weeks. will use ice pack for left rib area, can WBAT with walker. will f/u in 2 weeks in the office. Ortho to sign off at this point, please feel free to contact with any questions or concerns. (2) Closed sacral fracture: as noted above Subjective denies cp/sob, denies fever/chills. pain somewhat better today, c/o left rib pain, left hip/pelvis pain and left forearm pain. Physical Exam Vital Signs (Past 24 Hours): Last Vital Signs Temp 36.9 C 06/03/18 00:21 Pulse 84 06/03/18 00:21 Resp 12 06/03/18 00:21 BP 117/73 06/03/18 00:21 Pulse Ox 92 06/03/18 00:21 Physical Exam: mild tenderness present to the left ribcage area, no acute distress or difficulty breathing. no tenderness to the left elbow, dressing clean dry and intact to the olecranon area, full painless ROM of the elbow. able to wiggle her toes/ankle movement without pain, pain with leg lift, no discomfort with log roll. (1) Fracture of pubic ramus Encounter type: initial encounter Fracture type: closed Laterality: unspecified laterality Qualified Code(s): S32.599A - Other specified fracture of unspecified pubis, initial encounter for closed fracture (2) Closed sacral fracture Encounter type: initial encounter Zone of sacrum fracture: unspecified portion of sacrum Qualified Code(s): S32.10XA - Unspecified fracture of sacrum, initial encounter for closed fracture
[2018-06-03] MEDS: ACETAMINOPHEN 325 MG TAB PO PRN ×2 (07:40→17:29)
[2018-06-03] MEDS: PANTOprazole 40 MG TAB PO SCH (08:51)
--- NOTE | 2018-06-03 14:02 | Hospitalist Progress Note ---
Date of Service June 03, 2018 Assessment & Plan (1) Ambulatory dysfunction: (2) Fall: (3) Closed sacral fracture: (4) Fracture of pubic ramus: This is a 62 year old female with a PMH of Gerd, Chronic neck pain with history of Cspine fusion, RLS that presents to [facility] secondary to mechanical fall on ice earlier today. CT scan noted Acute nondisplaced left superior and inferior pubic rami fractures and fracture of the left sacral ala. Has been on pain medications the pain is reasonably controlled Patient worked to input and recommendations Conservative management PT and OT evaluation Likely need for short-term rehab Remains stable clinically Awaiting rehab placement Outpatient Ortho appointment in 2 weeks following discharge (5) GERD (gastroesophageal reflux disease): -continue PPI -No apparent symptoms (6) Chronic neck pain: -continue gabapentin, tramadol -Pain is worse with fracture (7) RLS (restless legs syndrome): -continue gabapentin -No active symptoms now of the pelvic rami and sacrum (8) DVT prophylaxis: -Lovenox 40mg SQ Disposition: Likely d/c to acute rehab will consult case management Follow up: PCP at [facility] upon discharge Subjective This is a 62 year old female with a PMH of Gerd, Chronic neck pain with history of Cspine fusion, RLS that presents to [facility] secondary to mechanical fall on ice earlier today. CT scan noted Acute nondisplaced left superior and inferior pubic rami fractures and fracture of the left sacral ala. 06/02 The patient was seen and examined in the medical floor He complains to have some pelvic pain but no other symptoms 06/03 She does not have any symptoms at rest Gets pain in the pelvis area with ambulation Denies any other symptoms Physical Exam Vital Signs (Past 24 Hours): Last Vital Signs Temp 36.9 C 06/03/18 07:35 Pulse 87 06/03/18 07:35 Resp 16 06/03/18 07:35 BP 111/69 06/03/18 07:35 Pulse Ox 97 06/03/18 07:35 Constitutional: WD/WN, vitals as above Eyes: PERRL, conjunctivae normal, anicteric sclerae ENMT: external ear and nose normal, oropharynx normal Neck: trachea midline, no thyromegaly Respiratory: normal respiratory effort Auscultation: lungs clear to auscultation bilaterally Cardiovascular: Rate/Rhythm: regular rate and regular rhythm Heart Sounds: normal S1 and normal S2 Gastrointestinal (Abdomen): normal bowel sounds, soft, nontender, no hepatosplenomegaly Musculoskeletal: Movement of the left hip joint causes some pain in the pelvis Neurologic: Alert awake and oriented x3. Results & Data Medications Administered Current Inpatient Medications Acetaminophen (Tylenol) 650 mg PO Q4H PRN PRN Reason: pain/fever Stop: 07/01/18 19:30 Last Admin: 06/03/18 07:40 Dose: 650 mg Documented by: Al Hydrox/Mg Hydrox/Simethicone (Maalox) 30 ml PO Q6H PRN PRN Reason: Dyspepsia Stop: 07/01/18 19:30 Last Admin: 06/02/18 16:33 Dose: 30 ml Documented by: Enoxaparin Sodium (Lovenox) 40 mg SQ Q24H [facility] Stop: 07/01/18 20:59 Last Admin: 06/02/18 22:45 Dose: 40 mg Documented by: Gabapentin (Neurontin) 400 mg PO HS [facility] Stop: 07/01/18 22:59 Last Admin: 06/02/18 21:22 Dose: 400 mg Documented by: Acetaminophen (Ofirmev) 1,000 mg in 100 mls @ 400 mls/hr IV Q8H PRN PRN Reason: Pain Stop: 07/01/18 19:30 Last Infusion: 06/01/18 22:20 Dose: Infused Documented by: Ketorolac Tromethamine (Toradol) 15 mg IV Q6H PRN PRN Reason: Pain Stop: 06/06/18 19:30 Magnesium Hydroxide (Milk Of Magnesia) 30 ml PO Q6H PRN PRN Reason: Constipation Stop: 07/01/18 19:30 Morphine Sulfate (Morphine Sulfate) 2 mg IV Q4H PRN PRN Reason: Severe Pain Stop: 06/15/18 19:30 Ondansetron HCl (Zofran) 4 mg IV Q6H PRN PRN Reason: Nausea Stop: 07/01/18 19:30 Last Admin: 06/02/18 09:18 Dose: 4 mg Documented by: Pantoprazole Sodium (Protonix) 40 mg PO DAILY [facility] Stop: 07/02/18 08:59 Last Admin: 06/03/18 08:51 Dose: 40 mg Documented by: Polyethylene Glycol (Miralax Powder Packet) 17 gm PO DAILY PRN PRN Reason: Constipation Stop: 07/01/18 19:30 Tramadol HCl (Ultram) 50 mg PO Q4H PRN PRN Reason: Pain Stop: 07/01/18 19:30 Last Admin: 06/03/18 07:56 Dose: 50 mg Documented by: (1) Fall Encounter type: initial encounter Qualified Code(s): W19.XXXA - Unspecified fall, initial encounter (2) Closed sacral fracture Encounter type: initial encounter Zone of sacrum fracture: unspecified portion of sacrum Qualified Code(s): S32.10XA - Unspecified fracture of sacrum, initial encounter for closed fracture (3) Fracture of pubic ramus Encounter type: initial encounter Fracture type: closed Laterality: unspecified laterality Qualified Code(s): S32.599A - Other specified fracture of unspecified pubis, initial encounter for closed fracture (4) GERD (gastroesophageal reflux disease) Esophagitis presence: esophagitis presence not specified Qualified Code(s): K21.9 - Gastro-esophageal reflux disease without esophagitis
[2018-06-03] MEDS: ENOXAPARIN INJ 40 MG/0.4 ML SYR SQ SCH (21:22)
[2018-06-03] MEDS: GABAPENTIN 400 MG CAP PO SCH (21:22)
[2018-06-04] MEDS: ACETAMINOPHEN 325 MG TAB PO PRN ×3 (00:52→21:21)
[2018-06-04] MEDS: TRAMADOL HCL 50 MG TABLET PO PRN ×4 (01:45→21:21)
[2018-06-04] MEDS: ALUMINUM/MAGNESIUM SUSP 30 ML UDC PO PRN (01:48)
[2018-06-04] MEDS: PANTOprazole 40 MG TAB PO SCH (09:32)
[2018-06-04] MEDS: ONDANSETRON INJ 2 MG/ML 2 ML VIAL IV PRN (11:52)
--- NOTE | 2018-06-04 13:24 | Hospitalist Progress Note ---
Date of Service June 04, 2018 Assessment & Plan (1) Ambulatory dysfunction: (2) Fall: (3) Closed sacral fracture: (4) Fracture of pubic ramus: This is a 62 year old female with a PMH of Gerd, Chronic neck pain with history of Cspine fusion, RLS that presents to [facility] secondary to mechanical fall on ice earlier today. CT scan noted Acute nondisplaced left superior and inferior pubic rami fractures and fracture of the left sacral ala. Has been on pain medications the pain is reasonably controlled Patient worked to input and recommendations Conservative management PT and OT evaluation Likely need for short-term rehab Remains stable clinically Awaiting rehab placement Outpatient Ortho appointment in 2 weeks following discharge Likely be discharged tomorrow (5) GERD (gastroesophageal reflux disease): -continue PPI -No apparent symptoms (6) Chronic neck pain: -continue gabapentin, tramadol -Pain is worse with fracture (7) RLS (restless legs syndrome): -continue gabapentin -No active symptoms now of the pelvic rami and sacrum (8) DVT prophylaxis: -Lovenox 40mg SQ Disposition: Likely d/c to acute rehab will consult case management Follow up: PCP at [facility] upon discharge Medically stable to be discharged Subjective This is a 62 year old female with a PMH of Gerd, Chronic neck pain with history of Cspine fusion, RLS that presents to [facility] secondary to mechanical fall on ice earlier today. CT scan noted Acute nondisplaced left superior and inferior pubic rami fractures and fracture of the left sacral ala. 06/02 The patient was seen and examined in the medical floor He complains to have some pelvic pain but no other symptoms 06/03 She does not have any symptoms at rest Gets pain in the pelvis area with ambulation Denies any other symptoms 06/04 Remains a stable and denies any symptoms except pain Has been getting physical therapy Awaiting rehab placement Physical Exam Vital Signs (Past 24 Hours): Last Vital Signs Temp 36.9 C 06/04/18 07:01 Pulse 84 06/04/18 07:01 Resp 16 06/04/18 07:01 BP 108/67 06/04/18 07:01 Pulse Ox 94 06/04/18 07:01 Constitutional: WD/WN, vitals as above Eyes: PERRL, conjunctivae normal, anicteric sclerae ENMT: external ear and nose normal, oropharynx normal Neck: trachea midline, no thyromegaly Respiratory: normal respiratory effort Auscultation: lungs clear to auscultation bilaterally Cardiovascular: Rate/Rhythm: regular rate and regular rhythm Heart Sounds: normal S1 and normal S2 Gastrointestinal (Abdomen): normal bowel sounds, soft, nontender, no hepatosplenomegaly (1) Fracture of pubic ramus Encounter type: initial encounter Fracture type: closed Laterality: unspecified laterality Qualified Code(s): S32.599A - Other specified fracture of unspecified pubis, initial encounter for closed fracture (2) Closed sacral fracture Encounter type: initial encounter Zone of sacrum fracture: unspecified portion of sacrum Qualified Code(s): S32.10XA - Unspecified fracture of sacrum, initial encounter for closed fracture (3) GERD (gastroesophageal reflux disease) Esophagitis presence: esophagitis presence not specified Qualified Code(s): K21.9 - Gastro-esophageal reflux disease without esophagitis (4) Fall Encounter type: initial encounter Qualified Code(s): W19.XXXA - Unspecified fall, initial encounter
[2018-06-04] MEDS: GABAPENTIN 400 MG CAP PO SCH (21:21)
[2018-06-04] MEDS: ENOXAPARIN INJ 40 MG/0.4 ML SYR SQ SCH (21:22)
[2018-06-05] MEDS: TRAMADOL HCL 50 MG TABLET PO PRN ×3 (01:28→16:43)
[2018-06-05] MEDS: ONDANSETRON INJ 2 MG/ML 2 ML VIAL IV PRN (05:22)
[2018-06-05 06:16] LABS: Hemoglobin 11.4 g/dL (12.0-16.0); Mean Corpuscular Hgb Conc 32.6 g/dL (32-36); Mean Corpuscular Volume 88.6 fL (80-100); Mean Platelet Volume 9.3 fL (7.4-10.4); Platelet Count 151 K/uL (130-400); RDW Coefficient of Variation 13.1 % (11.5-14.5); RDW Standard Deviation 42.8 fL (36.4-46.3); Red Blood Count 3.95 M/uL (4.2-5.4)
[2018-06-05 06:51] LABS: Creatinine Clr Calc Pharmacy 84.3 ml/min; Est GFR (African American) 105.1; Est GFR (Non-African American) 90.7
[2018-06-05] MEDS: ACETAMINOPHEN 325 MG TAB PO PRN ×2 (07:38→16:44)
[2018-06-05] MEDS: PANTOprazole 40 MG TAB PO SCH (07:38)
[2018-06-05] MEDS ORDERED: SERTRALINE HCL 100 MG TABLET PO SCH (11:15)
--- NOTE | 2018-06-05 13:27 | Hospitalist Progress Note ---
Date of Service June 05, 2018 Assessment & Plan (1) Ambulatory dysfunction: (2) Fall: (3) Closed sacral fracture: (4) Fracture of pubic ramus: This is a 62 year old female with a PMH of Gerd, Chronic neck pain with history of Cspine fusion, RLS that presents to [facility] secondary to mechanical fall on ice earlier today. CT scan noted Acute nondisplaced left superior and inferior pubic rami fractures and fracture of the left sacral ala. Has been on pain medications the pain is reasonably controlled Patient worked to input and recommendations Conservative management PT and OT evaluation-appreciate input and recommendation Likely need for short-term rehab Remains stable clinically Awaiting rehab placement Outpatient Ortho appointment in 2 weeks following discharge Still awaiting to be accepted to rehab (5) GERD (gastroesophageal reflux disease): -continue PPI -No apparent symptoms (6) Chronic neck pain: -continue gabapentin, tramadol -Pain is worse with fracture (7) RLS (restless legs syndrome): -continue gabapentin -No active symptoms now of the pelvic rami and sacrum (8) DVT prophylaxis: -Lovenox 40mg SQ Disposition: Likely d/c to acute rehab will consult case management Follow up: PCP at [facility] upon discharge Medically stable to be discharged (9) Depression (emotion): Has been compliant considering the medical problem and other issues going on around the Has been on Zoloft Will start Zoloft 100 mg/day Subjective This is a 62 year old female with a PMH of Gerd, Chronic neck pain with history of Cspine fusion, RLS that presents to [facility] secondary to mechanical fall on ice earlier today. CT scan noted Acute nondisplaced left superior and inferior pubic rami fractures and fracture of the left sacral ala. 06/02 The patient was seen and examined in the medical floor He complains to have some pelvic pain but no other symptoms 06/03 She does not have any symptoms at rest Gets pain in the pelvis area with ambulation Denies any other symptoms 06/04 Remains a stable and denies any symptoms except pain Has been getting physical therapy Awaiting rehab placement 06/05 Has been feeling depressed Denies any significant pain Still awaiting to be accepted to rehab Physical Exam Vital Signs (Past 24 Hours): Last Vital Signs Temp 36.8 C 06/05/18 07:34 Pulse 83 06/05/18 07:34 Resp 16 06/05/18 07:34 BP 140/90 06/05/18 07:34 Pulse Ox 93 06/05/18 07:34 Physical Exam: No apparent distress at rest Constitutional: WD/WN, vitals as above Eyes: PERRL, conjunctivae normal, anicteric sclerae ENMT: external ear and nose normal, oropharynx normal Neck: trachea midline, no thyromegaly Respiratory: normal respiratory effort Auscultation: lungs clear to auscultation bilaterally Cardiovascular: Rate/Rhythm: regular rate and regular rhythm Heart Sounds: normal S1 and normal S2 Gastrointestinal (Abdomen): normal bowel sounds, soft, nontender, no hepatosplenomegaly Neurologic: Alert, Results & Data Laboratory Results Short CBC 06/05/18 Range/Units 06:03 WBC 3.00 L (4.8-10.8) K/uL Hgb 11.4 L (12.0-16.0) g/dL Hct 35.0 L (37-47) % Plt Count 151 (130-400) K/uL BMP 06/05/18 06:03 Creatinine 0.71 Medications Administered Current Inpatient Medications Acetaminophen (Tylenol) 650 mg PO Q4H PRN PRN Reason: pain/fever Stop: 07/01/18 19:30 Last Admin: 06/05/18 07:38 Dose: 650 mg Documented by: Al Hydrox/Mg Hydrox/Simethicone (Maalox) 30 ml PO Q6H PRN PRN Reason: Dyspepsia Stop: 07/01/18 19:30 Last Admin: 06/04/18 01:48 Dose: 30 ml Documented by: Enoxaparin Sodium (Lovenox) 40 mg SQ Q24H [facility] Stop: 07/01/18 20:59 Last Admin: 06/04/18 21:22 Dose: 40 mg Documented by: Gabapentin (Neurontin) 400 mg PO HS [facility] Stop: 07/01/18 22:59 Last Admin: 06/04/18 21:21 Dose: 400 mg Documented by: Acetaminophen (Ofirmev) 1,000 mg in 100 mls @ 400 mls/hr IV Q8H PRN PRN Reason: Pain Stop: 07/01/18 19:30 Last Infusion: 06/01/18 22:20 Dose: Infused Documented by: Ketorolac Tromethamine (Toradol) 15 mg IV Q6H PRN PRN Reason: Pain Stop: 06/06/18 19:30 Magnesium Hydroxide (Milk Of Magnesia) 30 ml PO Q6H PRN PRN Reason: Constipation Stop: 07/01/18 19:30 Morphine Sulfate (Morphine Sulfate) 2 mg IV Q4H PRN PRN Reason: Severe Pain Stop: 06/15/18 19:30 Ondansetron HCl (Zofran) 4 mg IV Q6H PRN PRN Reason: Nausea Stop: 07/01/18 19:30 Last Admin: 06/05/18 05:22 Dose: 4 mg Documented by: Pantoprazole Sodium (Protonix) 40 mg PO DAILY [facility] Stop: 07/02/18 08:59 Last Admin: 06/05/18 07:38 Dose: 40 mg Documented by: Polyethylene Glycol (Miralax Powder Packet) 17 gm PO DAILY PRN PRN Reason: Constipation Stop: 07/01/18 19:30 Sertraline HCl (Zoloft) 100 mg PO QAM [facility] Stop: 07/05/18 11:14 Last Admin: 06/05/18 11:37 Dose: 100 mg Documented by: Tramadol HCl (Ultram) 50 mg PO Q4H PRN PRN Reason: Pain Stop: 07/01/18 19:30 Last Admin: 06/05/18 11:37 Dose: 50 mg Documented by: (1) Fall Encounter type: initial encounter Qualified Code(s): W19.XXXA - Unspecified fall, initial encounter (2) Closed sacral fracture Encounter type: initial encounter Zone of sacrum fracture: unspecified portion of sacrum Qualified Code(s): S32.10XA - Unspecified fracture of sacrum, initial encounter for closed fracture (3) Fracture of pubic ramus Encounter type: initial encounter Fracture type: closed Laterality: unspecified laterality Qualified Code(s): S32.599A - Other specified fracture of unspecified pubis, initial encounter for closed fracture (4) GERD (gastroesophageal reflux disease) Esophagitis presence: esophagitis presence not specified Qualified Code(s): K21.9 - Gastro-esophageal reflux disease without esophagitis
[2018-06-05] MEDS ORDERED: ONDANSETRON 4 MG OD TAB PO PRN (13:55)
--- NOTE | 2018-06-06 08:02 | Discharge Summary ---
Date of Service June 06, 2018 Admission HPI Per Admitting Provider This is a 62 year old female with a PMH of Gerd, Chronic neck pain with history of Cspine fusion, RLS that presents to [facility] secondary to mechanical fall on ice earlier today. Patient was walking into [employer] store when she fell on ice. Doesn't exactly recall how she fell, "it all happened to fast." She denies LOC, hitting head, syncope. After fall had immediate L hip pain, L shoulder pain and L elbow/wrist pain. Presented to ED. Trauma work up significant for nondisplaced left superior inferior pubic rami fracture along with left sacral fracture. Initial x-ray imaging was negative; however, subsequent CT imaging revealed occult fracture. Patient experienced significant pain with movement. Received IV morphine which caused nausea but alleviated pain to 3/10. She denies any other problems at this time including f/c/s, recent illness, chest pain, sob, emesis, diarrhea, change in bowel or bladder habits. Denies hx of osteoporosis. Has never had dexa scan. Mother + hx of osteoporosis. Mother and father both living but lung cancer survivor. Admission Exam Per Admitting Provider Vital Signs (Past 24 Hours): Last Vital Signs Temp 36.4 C L 06/01/18 13:31 Pulse 79 06/01/18 15:43 Resp 18 06/01/18 15:43 BP 154/80 H 06/01/18 15:43 Pulse Ox 93 06/01/18 15:43 Physical Exam: Gen: WD/WN, F, NAD, sitting up in bed, pleasant, conversing easily, flat affect Head: Normocephalic, Atraumatic Eyes: Sclera normal, no conjunctival injection, PERRLA, EOMI ENT: Gross hearing intact, normal pharynx, mucous membranes moist Neck: supple, no adenopathy, No JVD, no bruit, Resp: Clear to auscultation b/l, no wheeze, rales, rhonchi. 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 strength Extremities: No edema bilaterally Skin: warm, moist, no rash, negative turgor, cap refill < 2sec Neuro: Alert and oriented x 3, speech normal, good mood/affect, cran nerve 2-12 intact grossly : deferred Principal Diagnosis Nondisplaced left superior and inferior pubic ramus fracture, left sacral alar fracture, status post fall Discharge Exam Constitutional WD/WN, vitals as above Eyes PERRL, conjunctivae normal, anicteric sclerae ENMT external ear and nose normal, oropharynx normal Neck trachea midline, no thyromegaly Respiratory normal respiratory effort Auscultation: lungs clear to auscultation bilaterally Cardiovascular Rate/Rhythm: regular rate and regular rhythm Heart Sounds: normal S1 and normal S2 Gastrointestinal (Abdomen) normal bowel sounds, soft, nontender, no hepatosplenomegaly Discharge Data Allergies Allergy/AdvReac Type Severity Reaction Status Date / Time No Known Allergies Allergy Unverified 06/01/18 14:47 Consultations 06/01/18 16:55 ED Decision to Admit Stat 06/01/18 19:31 Consult Case Management - Discharge Planning Routine Consult Orthopedic Surgery Routine Ordered Studies 06/01/18 15:11 CT abd pelvis IV con only Stat CT hip LT wo con Stat Hospital Course (1) Ambulatory dysfunction: (2) Fall: (3) Closed sacral fracture: (4) Fracture of pubic ramus: This is a 62 year old female with a PMH of Gerd, Chronic neck pain with history of Cspine fusion, RLS that presents to [facility] secondary to mechanical fall on ice earlier today. CT scan noted Acute nondisplaced left superior and inferior pubic rami fractures and fracture of the left sacral ala. Has been on pain medications the pain is reasonably controlled Patient worked to input and recommendations Conservative management PT and OT evaluation-appreciate input and recommendation Likely need for short-term rehab Remains stable clinically Awaiting rehab placement Outpatient Ortho appointment in 2 weeks following discharge Still awaiting to be accepted to rehab (5) GERD (gastroesophageal reflux disease): -continue PPI -No apparent symptoms (6) Chronic neck pain: -continue gabapentin, tramadol -Pain is worse with fracture (7) RLS (restless legs syndrome): -continue gabapentin -No active symptoms now of the pelvic rami and sacrum (8) DVT prophylaxis: -Lovenox 40mg SQ Disposition: Likely d/c to acute rehab will consult case management Follow up: PCP at [facility] upon discharge Medically stable to be discharged (9) Depression (emotion): Has been compliant considering the medical problem and other issues going on around the Has been on Zoloft Will start Zoloft 100 mg/day Total Time Total Time Spent Total Time Spent (In Minutes): 37 minutes Total Time Includes: Examination of the Patient, Discharge Planning, Medication Reconciliation and Communication With Other Providers Discharge Plan Discharge Items Patient Disposition: Transfer Assisted Fac Reason For Visit: PUBIC FRACTURE Discharge Diagnosis: Nondisplaced left superior and inferior pubic ramus fracture, left sacral alar fracture, status post fall Condition: Fair Discharge Goals: Decrease discomfort, Improve function and Increase independence Activity: Resume your previous activity Activity Comment: Continue physical therapy Non-emergency contact: Primary Care Provider Call non-emergency contact if: you have any medication questions and your symptoms worsen Follow-up/Referrals: Joseph Beltran MD [Surgeon] - (Please make an appointment with Dr. Song in 2 weeks) PCP,NO [Primary Care Provider] - (Please try to make an appointment with your PCP in 1 week) Diet: Regular Addtl Provider Instructions: Continue physical therapy as per instruction by orthopedics.Plan for weightbearing as tolerated on the left lower extremity. Prescriptions: New sertraline 100 mg Tablet 100 mg PO QAM 30 Days Qty: 30 RF: 0 tramadol 50 mg Tablet 50 mg PO Q4H PRN (Reason: pain) 5 Days Qty: 20 RF: 0 Continued gabapentin 400 mg capsule 400 mg PO QAM RF: 0 esomeprazole magnesium 40 mg capsule,delayed release(DR/EC) 40 mg PO QAM RF: 0 Changed tramadol 50 mg tablet 50 mg PO Q4H PRN (Reason: Pain) Qty: 0 RF: 0 Stand-Alone Forms: [facility] Discharge Orders: Discharge Order (Routine); Ordered 06/05/18 Ordered By: Deng De Los Santos Skilled Items Patient informed of condition?: Yes DNR: No Discharge Level of Care: Skilled Communicable Disease: No Discharge Prognosis: Stable Admission Data Admit Date/Time: 06/01/18 17:35 Attending Provider: Deng De Los Santos Admit Provider: Lyndon Cohen Primary Care Provider: PCP,NO Other Providers: Lyndon Cohen ; Eriberto Weston Service: Surgical Services Other Interventions: Discharge Summary Assessment (RN) Last Done: 06/05/18 14:29 DC Date/Time DO NOT enter until pt leaves facility: 06/05/18 17:00
== END 2018-06-05 17:00 ==
LOC: ED 13:14 → 3W 13:14